=== PATIENT | female | born 1965 | race Caucasian/White ===

== ENCOUNTER 2020-04-17 05:01 | Emergency (ER) | payer BC ==
[~2020-04-17] VITALS: Ht 175.3 cm; Wt 95.4 kg
--- NOTE | 2020-04-17 05:26 | PHYS DOC ---
General Adult EDM: Chief Complaint: ABDOMINAL PAIN HPI: HPI: Patient is a 54 year old female who presents with complaint of mid abdominal pain that started at about 3:00 this morning. Patient states that she has had diarrhea for the last few days along with nausea but the abdominal pain did not start until this morning. She states that pain does not radiate. She states that pain is an 8 out of 10. She denies any fever, chest pain or shortness of breath. She states that pain is worsened with palpation. [] (ROSI WEATHERS Jr. DO) Review of Systems: Review of Systems: Constitutional: Denies fever or chills. [] Respiratory: Denies cough or shortness of breath. [] Cardiovascular: Denies chest pain or edema. [] GI: Complains of mid abdominal pain with nausea. Denies vomiting but does admit to diarrhea. [] Integument: Denies rash. [] Neurologic: Denies headache, focal weakness or sensory changes. [] A full 10 point review of systems has been reviewed and is otherwise negative. (ROSI WEATHERS Jr. DO) Heart Score: Risk Factors: Risk Factors: DM, Current or recent (<one month) smoker, HTN, HLP, family history of CAD, obesity. Risk Scores: Score 0 - 3: 2.5% MACE over next 6 weeks - Discharge Home Score 4 - 6: 20.3% MACE over next 6 weeks - Admit for Clinical Observation Score 7 - 10: 72.7% MACE over next 6 weeks - Early Invasive Strategies (ROSI WEATHERS Jr. DO) Current Medications: Current Medications Medications (Trade) Dose Ordered Sig/[facility] Start Time Stop Time Status Last Admin Dose Admin Fentanyl Citrate (Fentanyl 2ml Vial) 50 mcg PRN Q15MIN PRN 04/17/20 05:30 04/18/20 05:29 UNV Ondansetron HCl (Zofran) 4 mg 1X ONCE 04/17/20 05:30 04/17/20 05:31 UNV Sodium Chloride 1,000 ml @ 1,000 mls/hr Q1H 04/17/20 05:18 04/17/20 06:17 UNV (ROSI WEATHERS Jr., DO) Allergies: Allergies: Allergies Coded Allergies Type Severity Reaction Last Updated Verified No Known Drug Allergies 04/17/20 No (ROSI WEATHERS Jr. DO) Physical Exam: PE: Constitutional: Well developed, well nourished, no acute distress, non-toxic appearance. [] HENT: Normocephalic, atraumatic, bilateral external ears normal, oropharynx moist, no oral exudates, nose normal. [] Eyes: PERRLA, EOMI, conjunctiva normal, no discharge. [] Neck: Normal range of motion, no tenderness, supple. [] Cardiovascular: Regular rate and rhythm [] Lungs & Thorax: Bilateral breath sounds clear to auscultation [] Abdomen: Bowel sounds normal, soft, with mid abdominal tenderness, just above the umbilicus. [] Skin: Warm, dry, no erythema, no rash. [] Extremities: No tenderness, no cyanosis, no clubbing, ROM intact. [] Neurologic: Alert and oriented X 3, no focal deficits noted. [] (ROSI WEATHERS Jr. DO) EKG: EKG: [] (ROSI WEATHERS Jr., DO) Radiology/Procedures: Radiology/Procedures: [] (ROSI WEATHERS Jr., DO) Radiology/Procedures: [facility] [address] [place] [address] IMAGING REPORT Signed PATIENT: CARLOS EDUARDO PAK ACCOUNT: [id number] : 1965 LOCATION: ER AGE: 54 SEX: F EXAM STATUS: REG ER ORD. PHYSICIAN: ROSI WEATHERS Jr., DO REASON: abd pain PROCEDURE: CT ABD PELV W/ IV CONTRST ONLY EXAM: CT Abdomen and Pelvis with IV contrast CLINICAL HISTORY: Abdominal pain COMPARISON: none TECHNIQUE: Helical CT of the abdomen and pelvis was performed following the administration of IV contrast. Axial, coronal and sagittal reformatted images were generated. ---PQRS compliance statement - One or more of the following individualized dose reduction techniques were utilized for this study: 1. Automated exposure control 2. Adjustment of the mA and/or kV according to patient size 3. Use of iterative reconstruction technique--- FINDINGS: Lower chest: Linear and subpleural opacities left greater than right lower lobes likely scarring/atelectasis. Abdomen and pelvis: Liver and biliary system: No focal liver lesion. Liver is enlarged measuring 22.1 cm in length. Noncalcified gallstones are seen dependently within the gallbladder. No biliary duct dilatation. Spleen: Unremarkable Pancreas: Unremarkable Adrenal glands: Unremarkable Kidneys: Symmetric nephrograms. No focal renal lesion. No hydronephrosis. No hydroureter. Lymph nodes/retroperitoneum: No abdominal or pelvic lymphadenopathy. No abdominal or pelvic ascites. Vessels: Atherosclerotic calcifications of aorta are seen. Bowel/Peritoneal cavity: Moderate colonic stool content is seen. Appendix is not convincingly seen. No small or large bowel dilatation. A few colonic diverticula are seen. No evidence for acute diverticulitis. No abdominal or pelvic ascites. Abdominal wall: Unremarkable Bladder: Unremarkable Bones: Degenerative changes of the spine are seen. IMPRESSION: No bowel obstruction. Appendix is not seen although no significant right lower quadrant inflammatory changes are seen. Gallstones are seen within the gallbladder. No CT evidence for acute cholecystitis. Colonic diverticula are seen without evidence for acute diverticulitis. Electronically signed by: Steven Ellison MD (04/17/2020 6:50 AM) [id number] DICTATED and SIGNED BY: STEVEN ELLISON MD DATE: 04/17/20 0650 [facility] [address] [place] [address] IMAGING REPORT Signed PATIENT: CARLOS EDUARDO PAK ACCOUNT: [id number] : 1965 LOCATION: ER AGE: 54 SEX: F EXAM STATUS: REG ER ORD. PHYSICIAN: MIRI MCPHERSON DO REASON: epigastric abdominal pain, gallstones. PROCEDURE: ABDOMEN LTD Limited abdomen ultrasound HISTORY: Epigastric abdominal pain, gallstones. COMPARISON: CT abdomen April 17, 2020. FINDINGS: The imaged pancreas, upper abdominal IVC and upper abdominal aorta are normal. Normal liver echogenicity. No liver mass or nodularity documented. Elongation of the right hepatic lobe with a length of 18.5 cm, the inferior tip of the liver extending below the right renal lower pole, this could be observed with a tall body stature or could indicate hepatomegaly. No biliary ductal dilation the common bile duct diameter is 5 mm. Cholelithiasis, no inflammatory changes of the gallbladder. Right renal length 11.7 cm. No right renal mass, calculus or hydronephrosis documented. Spleen and left kidney were not evaluated. IMPRESSION: Cholelithiasis. No inflammatory changes of the gallbladder. No biliary ductal dilation. See above. Electronically signed by: Imelda Barclay MD (04/17/2020 8:04 AM) [id number] DICTATED and SIGNED BY: IMELDA BARCLAY MD DATE: 04/17/20 0804 (MIRI MCPHERSON DO) Course & Med Decision Making: Course & Med Decision Making Pertinent Labs and Imaging studies reviewed. (See chart for details) [] (ROSI WEATHERS Jr., DO) Course & Med Decision Making Patient is a 54-year-old female who was evaluated in ER due to abdominal pain, her CT scan of abdomen pelvis and ultrasound shows gallstone. There is no evidence of infection. The pain was under control. Patient will be discharged home, she will need to follow-up with a general surgeon for outpatient elective operation. Patient is amenable to plan of care. (MIRI MCPHERSON DO) Dragon Disclaimer: Dragon Disclaimer: This electronic medical record was generated, in whole or in part, using a voice recognition dictation system. (ROSI WEATHERS Jr., DO) Departure Departure Impression: Primary Impression: Abdominal pain Additional Impression: Cholelithiasis Disposition: HOME, SELF-CARE Condition: IMPROVED Referrals: NO PCP (PCP) GARIMA MOON MD please call this general surgeon for follow up this week. Patient Instructions: Cholelithiasis Scripts Hydrocodone/Apap 5-325 (NORCO 5-325 TABLET) 1 Each Tablet 1 TAB PO PRN Q6HRS PRN for PAIN, #15 TAB 0 Refills Prov: MIRI MCPHERSON DO 04/17/20 ROSI WEATHERS Jr. DO Apr 17, 2020 05:25 MIRI MCPHERSON DO Apr 17, 2020 08:15
[2020-04-17 05:27] LABS: BILIRUBIN,URINE NEGATIVE (NEG); CLARITY,URINE CLEAR; COLOR,URINE YELLOW; NITRITE,URINE NEGATIVE (NEG); PROTEIN,URINE NEGATIVE (NEG-TRACE); UROBILINOGEN,URINE 0.2 mg/dL (0.2 mg/dL)
[2020-04-17] MEDS ORDERED: IV NORMAL SALINE 1000ML BAG 1,000 ML IV SCH (05:30)
[2020-04-17] MEDS ORDERED: ONDANSETRON PF 4 MG/2 ML VIAL. IVP ONE (05:30)
[2020-04-17 05:37] LABS: BASO % 1 % (0-3); EOS % 1 % (0-3); HEMOGLOBIN 14.6 g/dL (12.0-15.5); LYMPH # 1.6 x10^3/uL (1.0-4.8); LYMPH % 25 % (24-48); MEAN CORPUSCULAR HEMOGLOBIN 31 pg (25-35); MEAN CORPUSCULAR HGB CONC 34 g/dL (31-37); MEAN CORPUSCULAR VOLUME 91 fL (79-100); MONO # 0.4 x10^3/uL (0.0-1.1); MONO % 6 % (0-9); NEUT # 4.5 x10^3/uL (1.8-7.7); NEUT % 68 % (31-73); PLATELET COUNT 214 x10^3/uL (140-400); RED BLOOD COUNT 4.72 x10^6/uL (3.50-5.40); RED CELL DISTRIBUTION WIDTH 13.7 % (11.5-14.5); WHITE BLOOD COUNT 6.6 x10^3/uL (4.0-11.0)
[2020-04-17] MEDS: fentaNYL PF VIAL 100 MCG/2 ML VIAL IV PRN ×2 (05:37→07:10)
[2020-04-17 05:42] LABS: SQUAMOUS EPITHELIAL CELL,UR MOD /LPF
[2020-04-17 05:43] LABS: BACTERIA,URINE FEW /HPF (0-FEW); RBC,URINE RARE /HPF (0-2)
[2020-04-17 05:45] LABS: CREATININE 1.2 mg/dL (0.6-1.0); POTASSIUM 3.7 mmol/L (3.5-5.1)
[2020-04-17 05:51] LABS: ALBUMIN 3.7 g/dL (3.4-5.0); ALBUMIN/GLOBULIN RATIO 1.1 (1.0-1.7); TOTAL BILIRUBIN 0.2 mg/dL (0.2-1.0); TOTAL PROTEIN 7.2 g/dL (6.4-8.2)
[2020-04-17] MEDS ORDERED: IOHEXOL 300 MG/ML 100ML VIAL. IV ONE (06:45)
[2020-04-17] MEDS ORDERED: CONTRAST GIVEN. MC PRN (06:45)
--- NOTE | 2020-04-17 06:53 | RAD ---
EXAM: CT Abdomen and Pelvis with IV contrast CLINICAL HISTORY: Abdominal pain COMPARISON: none TECHNIQUE: Helical CT of the abdomen and pelvis was performed following the administration of IV contrast. Axial, coronal and sagittal reformatted images were generated. ---PQRS compliance statement - One or more of the following individualized dose reduction techniques were utilized for this study: 1. Automated exposure control 2. Adjustment of the mA and/or kV according to patient size 3. Use of iterative reconstruction technique--- FINDINGS: Lower chest: Linear and subpleural opacities left greater than right lower lobes likely scarring/atelectasis. Abdomen and pelvis: Liver and biliary system: No focal liver lesion. Liver is enlarged measuring 22.1 cm in length. Noncalcified gallstones are seen dependently within the gallbladder. No biliary duct dilatation. Spleen: Unremarkable Pancreas: Unremarkable Adrenal glands: Unremarkable Kidneys: Symmetric nephrograms. No focal renal lesion. No hydronephrosis. No hydroureter. Lymph nodes/retroperitoneum: No abdominal or pelvic lymphadenopathy. No abdominal or pelvic ascites. Vessels: Atherosclerotic calcifications of aorta are seen. Bowel/Peritoneal cavity: Moderate colonic stool content is seen. Appendix is not convincingly seen. No small or large bowel dilatation. A few colonic diverticula are seen. No evidence for acute diverticulitis. No abdominal or pelvic ascites. Abdominal wall: Unremarkable Bladder: Unremarkable Bones: Degenerative changes of the spine are seen. IMPRESSION: No bowel obstruction. Appendix is not seen although no significant right lower quadrant inflammatory changes are seen. Gallstones are seen within the gallbladder. No CT evidence for acute cholecystitis. Colonic diverticula are seen without evidence for acute diverticulitis. Electronically signed by: Steven Maza MD (04/17/2020 6:50 AM) [id number]
[2020-04-17 07:27] VITALS: BP 154/79
--- NOTE | 2020-04-17 08:07 | RAD ---
Limited abdomen ultrasound HISTORY: Epigastric abdominal pain, gallstones. COMPARISON: CT abdomen April 17, 2020. FINDINGS: The imaged pancreas, upper abdominal IVC and upper abdominal aorta are normal. Normal liver echogenicity. No liver mass or nodularity documented. Elongation of the right hepatic lobe with a length of 18.5 cm, the inferior tip of the liver extending below the right renal lower pole, this could be observed with a tall body stature or could indicate hepatomegaly. No biliary ductal dilation the common bile duct diameter is 5 mm. Cholelithiasis, no inflammatory changes of the gallbladder. Right renal length 11.7 cm. No right renal mass, calculus or hydronephrosis documented. Spleen and left kidney were not evaluated. IMPRESSION: Cholelithiasis. No inflammatory changes of the gallbladder. No biliary ductal dilation. See above. Electronically signed by: Juan Barclay MD (04/17/2020 8:04 AM) [id number]
[2020-04-17] MEDS ORDERED: HYDR-3164 PO (08:30)
== END 2020-04-17 08:42 | disposition home or self-care (01) ==
LOC: ER 05:01
DX: K80.20 Calculus of gallbladder without cholecystitis without obstruction (principal); R19.7 Diarrhea, unspecified
CPT/HCPCS: 36415; 74177; 76705; 80053; 81001; 83690; 85025; 96361; 96374; 96375; 96376; 99285; J2405; J3010; J7030; Q9967

== ENCOUNTER 2020-04-23 00:45 | Inpatient (IN) | payer BC ==
[~2020-04-23] VITALS: Ht 175.3 cm; Wt 90.7 kg
[~2020-04-23 00:45] MED LIST: HYDR-3164 PO
[2020-04-23] MEDS ORDERED: MORPHINE SULFATE 4 MG/ML VIAL. IV ONE (01:30)
[2020-04-23] MEDS ORDERED: ONDANSETRON PF 4 MG/2 ML VIAL. IVP ONE (01:30)
[2020-04-23] MEDS ORDERED: IV NORMAL SALINE 1000ML BAG 1,000 ML IV ONE ×3 (01:30→09:15)
--- NOTE | 2020-04-23 01:33 | PHYS DOC ---
Past Medical History Past Medical History: Other Additional Past Medical Histor: GALL STONE Past Surgical History: Hysterectomy, Other Additional Past Surgical Histo: SX CARPAL TUNNEL REPAI RIGHT WRIST, BACK. SCAR REVISION ON FACE Smoking Status: Never Smoker Alcohol Use: None General Adult EDM: Chief Complaint: ABDOMINAL PAIN HPI: HPI: Patient is a 54 year old female presenting to the ED with a chief complaint of right upper quadrant tenderness. Patient states that she was seen in the ER 5 days ago and was diagnosed with gallstones. Patient states that at that time she was referred to her surgeon and has an appointment next week. Patient states that tonight the pain got so bad that she came into the ER. Patient states that she is also been vomiting and unable to hold any food down. Patient denies fever, chills, chest pain, shortness of breath. Review of Systems: Review of Systems: Constitutional: Denies fever or chills. [] Eyes: Denies change in visual acuity. [] HENT: Denies nasal congestion or sore throat. [] Respiratory: Denies cough or shortness of breath. [] Cardiovascular: Denies chest pain or edema. [] GI: Complains of right upper quadrant tenderness and nausea and vomiting [] : Denies dysuria. [] Musculoskeletal: Denies back pain or joint pain. [] Integument: Denies rash. [] Neurologic: Denies headache, focal weakness or sensory changes. [] Heart Score: Risk Factors: Risk Factors: DM, Current or recent (<one month) smoker, HTN, HLP, family history of CAD, obesity. Risk Scores: Score 0 - 3: 2.5% MACE over next 6 weeks - Discharge Home Score 4 - 6: 20.3% MACE over next 6 weeks - Admit for Clinical Observation Score 7 - 10: 72.7% MACE over next 6 weeks - Early Invasive Strategies Current Medications: Current Medications Medications (Trade) Dose Ordered Sig/Don Start Time Stop Time Status Last Admin Dose Admin Morphine Sulfate (Morphine Sulfate) 4 mg 1X ONCE 04/23/20 01:30 04/23/20 01:31 DC Ondansetron HCl (Zofran) 4 mg 1X ONCE 04/23/20 01:30 04/23/20 01:31 DC Sodium Chloride 1,000 ml @ 1,000 mls/hr 1X ONCE 04/23/20 01:30 04/23/20 02:29 Allergies: Allergies: Allergies Coded Allergies Type Severity Reaction Last Updated Verified No Known Drug Allergies 04/17/20 No Physical Exam: PE: Constitutional: Well developed, well nourished, no acute distress, non-toxic appearance. [] HENT: Normocephalic, atraumatic Eyes: EOMI Neck: Normal range of motion, Supple Cardiovascular: Heart rate regular rhythm Lungs & Thorax: Bilateral breath sounds clear to auscultation [] Abdomen: Right upper quadrant tenderness Extremities: No tenderness, ROM intact Neurologic: Alert and oriented X 3 Current Patient Data: Vital Signs: Vital Signs Date Time Temp Pulse Resp B/P (MAP) Pulse Ox O2 Delivery O2 Flow Rate FiO2 04/23/20 01:10 98.4 72 24 128/70 (89) 100 Room Air 98.4 EKG: EKG: [] Radiology/Procedures: Radiology/Procedures: [] Impression: CT ABD/PELVIS IMPRESSION: * Gallbladder is distended at time of examination with some heterogenous material within which could be from sludge and stones. There is also mild dilatation of the common bile duct. Would correlate with symptoms in the region and it may be helpful to obtain a follow-up ultrasound to further evaluate. * No evidence of bowel obstruction or appendicitis. Course & Med Decision Making: Course & Med Decision Making Pertinent Labs and Imaging studies reviewed. (See chart for details) Ordered labs, IV fluids, IV morphine, IV Zofran Labs are within normal limits. Patient wants to try ice chips she thinks that she can go home. Patient states that the pain is returned. I have ordered Dilaudid 1 mg IV. We will reevaluate the patient again. Patient needed another dose of Dilaudid 1 mg IV. IMPRESSION: * Gallbladder is distended at time of examination with some heterogenous material within which could be from sludge and stones. There is also mild dilatation of the common bile duct. Would correlate with symptoms in the region and it may be helpful to obtain a follow-up ultrasound to further evaluate. * No evidence of bowel obstruction or appendicitis. Patient still has abdominal pain ability to be admitted to the hospital for further evaluation and treatment. We will discuss with hospitalist service for admission. Discussed results and plan of care with patient. Bakari Disclaimer: Bakari Disclaimer: This electronic medical record was generated, in whole or in part, using a voice recognition dictation system. Departure Departure Impression: Primary Impression: Cholelithiasis Additional Impression: Intractable abdominal pain Disposition: ADMITTED INPATIENT Condition: GOOD Referrals: NO PCP (PCP) Justicifation of Admission Dx: Justifications for Admission: Justification of Admission Dx: Yes JANET RAMOS DO Apr 23, 2020 01:32
[2020-04-23 01:38] LABS: BASO # 0.1 x10^3/uL (0.0-0.2); BASO % 1 % (0-3); EOS % 0 % (0-3); HEMATOCRIT 39.3 % (36.0-47.0); HEMOGLOBIN 13.6 g/dL (12.0-15.5); LYMPH # 1.6 x10^3/uL (1.0-4.8); LYMPH % 18 % (24-48); MEAN CORPUSCULAR HEMOGLOBIN 32 pg (25-35); MEAN CORPUSCULAR HGB CONC 35 g/dL (31-37); MEAN CORPUSCULAR VOLUME 91 fL (79-100); MONO # 0.4 x10^3/uL (0.0-1.1); MONO % 5 % (0-9); NEUT # 6.9 x10^3/uL (1.8-7.7); NEUT % 77 % (31-73); PLATELET COUNT 210 x10^3/uL (140-400); RED BLOOD COUNT 4.32 x10^6/uL (3.50-5.40); RED CELL DISTRIBUTION WIDTH 13.8 % (11.5-14.5); WHITE BLOOD COUNT 8.9 x10^3/uL (4.0-11.0)
[2020-04-23 01:47] LABS: CALCIUM 8.9 mg/dL (8.5-10.1); CREATININE 1.3 mg/dL (0.6-1.0); GFR 42.8; POTASSIUM 3.9 mmol/L (3.5-5.1)
[2020-04-23 01:53] LABS: ALBUMIN 3.7 g/dL (3.4-5.0); ALBUMIN/GLOBULIN RATIO 1.2 (1.0-1.7); TOTAL BILIRUBIN 0.2 mg/dL (0.2-1.0); TOTAL PROTEIN 6.8 g/dL (6.4-8.2)
[2020-04-23] MEDS ORDERED: HYDROmorphone 2 MG/ML VIAL IV ONE ×2 (02:30→03:30)
[2020-04-23] MEDS ORDERED: CONTRAST GIVEN. MC PRN (03:00)
[2020-04-23] MEDS ORDERED: IOHEXOL 300 MG/ML 100ML VIAL. IV ONE (03:00)
--- NOTE | 2020-04-23 03:51 | RAD ---
INDICATION: Reason: RUQ pain / Spl. Instructions: OMNI 300 INJ 60 MLS / History: COMPARISON: April 17, 2020 TECHNIQUE: Axial CT images obtained through the abdomen and pelvis with contrast. One or more of the following individualized dose reduction techniques were utilized for this examination: 1. Automated exposure control; 2. Adjustment of the mA and/or kV according to patient size; 3. Use of iterative reconstruction technique. FINDINGS: Moderate calcific atherosclerosis without abdominal aortic aneurysm. Gallbladder is distended at time of exam with some heterogenous material within. Mild prominence of the bile ducts. No peripancreatic fluid collection. Spleen unremarkable. No hydronephrosis. Urinary bladder is partially distended. Colonic diverticulosis. Appendix does not appear inflamed. Postoperative changes to small bowel. Common bile duct measures approximately 8 mm. Degenerative changes of the spine. Multilevel central canal and neural foraminal stenosis. IMPRESSION: * Gallbladder is distended at time of examination with some heterogenous material within which could be from sludge and stones. There is also mild dilatation of the common bile duct. Would correlate with symptoms in the region and it may be helpful to obtain a follow-up ultrasound to further evaluate. * No evidence of bowel obstruction or appendicitis. Electronically signed by: Rahul Daniels MD (04/23/2020 3:48 AM) [id number]
[2020-04-23 06:12] VITALS: BP 139/65
--- NOTE | 2020-04-23 06:27 | NUR ---
Patient arrived to the unit at 0545 hours. Patient admission paperwork and head to toe assessment completed at this time. Patient currently reports pain at 3 out of a 10. Patient states pain mostly in Upper Left Quadrant of abdomen. Patient NPO at this time. Patient's bed placed in the lowest position and call placed within reach of patient. Will continue to monitor patient at this time.
--- NOTE | 2020-04-23 07:13 | RAD ---
INDICATION : Reason: RUQ pain / Spl. Instructions: / History: COMPARISON: CT from earlier same day TECHNIQUE: Multiple ultrasound images obtained through the abdomen in grayscale and color. FINDINGS: Liver: Mildly echogenic. Gallbladder: Gallstones are identified. Gallbladder wall is prominent in thickness with suspected pericholecystic edema. Wall measures approximately 4 mm. IVC: Partially distended at level of liver. Common Bile Duct: Dilated to about 8 mm. Pancreas: No gross abnormality identified in visualized portions of pancreas. Right Kidney: No hydronephrosis. IMPRESSION: * Multiple gallstones are identified. There is also some mild gallbladder wall thickening and pericholecystic edema. Would correlate with symptoms in the region since this can be seen with cholecystitis. Other possible causes of gallbladder wall thickening include reactive to adjacent hepatic disease or a systemic process such as hypoproteinemia. * Dilatation of the common bile duct. A distal obstruction is not excluded given this finding. * Liver appears mildly echogenic. Nonspecific but can be seen with fatty infiltration Electronically signed by: Rahul Daniels MD (04/23/2020 7:10 AM) [id number]
--- NOTE | 2020-04-23 08:26 | PDOC2 ---
RONI MUÑOZ CASHIER OR CHECKER STOCK CLERK 04/23/20 0826: CONSULT Date of Consult Date of Consult DATE: 04/23/20 TIME: 08:19 Reason for Consult Reason for Consult: cholecystitis Referring Physician Referring Physician: ER Identification/Chief Complaint Chief Complaint abdominal pain Source Source: Chart review, Patient History of Present Illness Reason for Visit: Reports intermittent abdominal pain off and on for a year. Significant pain 5 days ago, referral to surgery-returned with severe pain last--right upper quadrant, severe nausea. Mild aching pain in back. Unable to relate to any certain foods. Chronic issues with diarrhea, constipation. Past Medical History Past Medical History no pertinent hx Past Surgical History Past Surgical History: Hysterectomy, Other (sb resection, related to endometriosis ) Family History Family History: Diabetes Social History No ALCOHOL: none Drugs: None Lives: Alone Current Problem List Problem List Problems Medical Problems: (1) Cholelithiasis Status: Acute (2) Intractable abdominal pain Status: Acute Current Medications Current Medications Current Medications Sodium Chloride 1,000 ml @ 1,000 mls/hr 1X ONCE IV Last administered on 04/23/20at 01:35; Start 04/23/20 at 01:30; Stop 04/23/20 at 02:29; Status DC Morphine Sulfate (Morphine Sulfate) 4 mg 1X ONCE IV Last administered on 04/23/20at 01:34; Start 04/23/20 at 01:30; Stop 04/23/20 at 01:31; Status DC Ondansetron HCl (Zofran) 4 mg 1X ONCE IVP Last administered on 04/23/20at 01:34; Start 04/23/20 at 01:30; Stop 04/23/20 at 01:31; Status DC Hydromorphone HCl (Dilaudid) 1 mg 1X ONCE IV Last administered on 04/23/20at 02:22; Start 04/23/20 at 02:30; Stop 04/23/20 at 02:31; Status DC Sodium Chloride 1,000 ml @ 1,000 mls/hr 1X ONCE IV Last administered on 04/23/20at 03:10; Start 04/23/20 at 03:00; Stop 04/23/20 at 03:59; Status DC Iohexol (Omnipaque 300 Mg/ml) 60 ml 1X ONCE IV Last administered on 04/23/20at 02:56; Start 04/23/20 at 03:00; Stop 04/23/20 at 03:01; Status DC Info (CONTRAST GIVEN -- Rx MONITORING) 1 each PRN DAILY PRN MC SEE COMMENTS; Start 04/23/20 at 03:00; Stop 04/25/20 at 02:59 Hydromorphone HCl (Dilaudid) 1 mg 1X ONCE IV Last administered on 04/23/20at 03:30; Start 04/23/20 at 03:30; Stop 04/23/20 at 03:31; Status DC Piperacillin Sod/ Tazobactam Sod 3.375 gm/Sodium Chloride 50 ml @ 100 mls/hr Q6HRS IV ; Start 04/23/20 at 12:00 Active Scripts Active [place] 5-325 Tablet (Acetaminophen/Hydrocodone Bitart) 1 Each Tablet 1 Tab PO PRN Q6HRS PRN Allergies Allergies: Coded Allergies: No Known Drug Allergies (Unverified , 04/17/20) ROS General: No: Chills, Other (fevers ) PSYCHOLOGICAL ROS: No: Anxiety, Depression Eyes: No Blurry vision, No Double vision HEENT: No: Heacaches, Sore Throat Hematological and Lymphatic: No: Bleeding Problems, Blood Clots Respiratory: No: Cough, Shortness of breath Cardiovascular: No Chest Pain, No Palpitations Gastrointestinal: Yes Other (see hpi) Genitourinary: No Dysuria, No Hematuria Musculoskeletal: No Gait Disturbance, No Joint Stiffness Neurological: No Bowel/Bladder ControlChng, No Impaired Coord/balance Skin: No Pruritus, No Rash Physical Exam General: Alert, Oriented X3, Cooperative HEENT: Atraumatic, PERRLA Lungs: Clear to auscultation, Normal air movement Heart: Regular rate, Normal S1, Normal S2 Abdomen: Soft, Other (ND, mild TTP RUQ, vertical midline scar ) Extremities: No clubbing, No cyanosis Skin: No rashes, No breakdown Neuro: Normal gait, Normal speech Psych/Mental Status: Mental status NL, Mood NL MUSCULOSKELETAL: No deformity, No swelling Vitals VITALS Vital Signs Date Time Temp Pulse Resp B/P (MAP) Pulse Ox O2 Delivery O2 Flow Rate FiO2 04/23/20 06:55 Room Air 04/23/20 06:12 97.7 79 20 139/65 (89) 98 97.7 04/23/20 05:32 2.0 Labs Labs Laboratory Tests Test 04/23/20 01:25 White Blood Count 8.9 x10^3/uL (4.0-11.0) Red Blood Count 4.32 x10^6/uL (3.50-5.40) Hemoglobin 13.6 g/dL (12.0-15.5) Hematocrit 39.3 % (36.0-47.0) Mean Corpuscular Volume 91 fL (79-100) Mean Corpuscular Hemoglobin 32 pg (25-35) Mean Corpuscular Hemoglobin Concent 35 g/dL (31-37) Red Cell Distribution Width 13.8 % (11.5-14.5) Platelet Count 210 x10^3/uL (140-400) Neutrophils (%) (Auto) 77 % (31-73) Lymphocytes (%) (Auto) 18 % (24-48) Monocytes (%) (Auto) 5 % (0-9) Eosinophils (%) (Auto) 0 % (0-3) Basophils (%) (Auto) 1 % (0-3) Neutrophils # (Auto) 6.9 x10^3/uL (1.8-7.7) Lymphocytes # (Auto) 1.6 x10^3/uL (1.0-4.8) Monocytes # (Auto) 0.4 x10^3/uL (0.0-1.1) Eosinophils # (Auto) 0.0 x10^3/uL (0.0-0.7) Basophils # (Auto) 0.1 x10^3/uL (0.0-0.2) Sodium Level 140 mmol/L (136-145) Potassium Level 3.9 mmol/L (3.5-5.1) Chloride Level 104 mmol/L (98-107) Carbon Dioxide Level 27 mmol/L (21-32) Anion Gap 9 (6-14) Blood Urea Nitrogen 25 mg/dL (7-20) Creatinine 1.3 mg/dL (0.6-1.0) Estimated GFR (Cockcroft-Gault) 42.8 BUN/Creatinine Ratio 19 (6-20) Glucose Level 152 mg/dL (70-99) Calcium Level 8.9 mg/dL (8.5-10.1) Total Bilirubin 0.2 mg/dL (0.2-1.0) Aspartate Amino Transf (AST/SGOT) 15 U/L (15-37) Alanine Aminotransferase (ALT/SGPT) 27 U/L (14-59) Alkaline Phosphatase 85 U/L (46-116) Total Protein 6.8 g/dL (6.4-8.2) Albumin 3.7 g/dL (3.4-5.0) Albumin/Globulin Ratio 1.2 (1.0-1.7) Lipase 98 U/L (73-393) Laboratory Tests Test 04/23/20 01:25 White Blood Count 8.9 x10^3/uL (4.0-11.0) Red Blood Count 4.32 x10^6/uL (3.50-5.40) Hemoglobin 13.6 g/dL (12.0-15.5) Hematocrit 39.3 % (36.0-47.0) Mean Corpuscular Volume 91 fL (79-100) Mean Corpuscular Hemoglobin 32 pg (25-35) Mean Corpuscular Hemoglobin Concent 35 g/dL (31-37) Red Cell Distribution Width 13.8 % (11.5-14.5) Platelet Count 210 x10^3/uL (140-400) Neutrophils (%) (Auto) 77 % (31-73) Lymphocytes (%) (Auto) 18 % (24-48) Monocytes (%) (Auto) 5 % (0-9) Eosinophils (%) (Auto) 0 % (0-3) Basophils (%) (Auto) 1 % (0-3) Neutrophils # (Auto) 6.9 x10^3/uL (1.8-7.7) Lymphocytes # (Auto) 1.6 x10^3/uL (1.0-4.8) Monocytes # (Auto) 0.4 x10^3/uL (0.0-1.1) Eosinophils # (Auto) 0.0 x10^3/uL (0.0-0.7) Basophils # (Auto) 0.1 x10^3/uL (0.0-0.2) Sodium Level 140 mmol/L (136-145) Potassium Level 3.9 mmol/L (3.5-5.1) Chloride Level 104 mmol/L (98-107) Carbon Dioxide Level 27 mmol/L (21-32) Anion Gap 9 (6-14) Blood Urea Nitrogen 25 mg/dL (7-20) Creatinine 1.3 mg/dL (0.6-1.0) Estimated GFR (Cockcroft-Gault) 42.8 BUN/Creatinine Ratio 19 (6-20) Glucose Level 152 mg/dL (70-99) Calcium Level 8.9 mg/dL (8.5-10.1) Total Bilirubin 0.2 mg/dL (0.2-1.0) Aspartate Amino Transf (AST/SGOT) 15 U/L (15-37) Alanine Aminotransferase (ALT/SGPT) 27 U/L (14-59) Alkaline Phosphatase 85 U/L (46-116) Total Protein 6.8 g/dL (6.4-8.2) Albumin 3.7 g/dL (3.4-5.0) Albumin/Globulin Ratio 1.2 (1.0-1.7) Lipase 98 U/L (73-393) Assessment/Plan Assessment/Plan cholecystitis will keep NPO, will d/w Dr Espinoza in planning lap anabell continue abx VANESSA ESPINOZA MD 04/23/20 1230: CONSULT Assessment/Plan Assessment/Plan Pt seen and examined; reported to the hospital with RUQ abdominal pain has been recurrent. Evaluation consistent with cholecystitis. PMH/PSH/ROS/SH as above; exam: alert, oriented, no distress, lungs clear, heart RR and R, abdomen soft, tender with palpation in RUQ, ext neg for edema. A/P) Calculous cholecystitis; recommend lap anabell, Covid test results pending, will add to OR schedule tomorrow RONI MUÑOZ APRN Apr 23, 2020 08:26 VANESSA ESPINOZA MD Apr 23, 2020 12:30
--- NOTE | 2020-04-23 09:09 | PDOC1 ---
History and Physical Date of Admission Date of Admission DATE: 04/23/20 TIME: 09:05 Identification/Chief Complaint Chief Complaint abd pain Source Source: Chart review, Patient History of Present Illness History of Present Illness Ms. Lucio, is a 54 year old female presenting to the ED with a chief complaint of right upper quadrant tenderness. Patient states that she was seen in the ER 5 days ago and was diagnosed with gallstones. Patient states that at that time she was referred to her surgeon and has an appointment next week. Patient states that tonight the pain got so bad that she came into the ER. Patient s tates that she is also been vomiting and unable to hold any food down. Patient denies fever, chills, chest pain, shortness of breath. Past Medical History Cardiovascular: No pertinent hx Pulmonary: No pertinent hx GI: No pertinent hx Heme/Onc: No pertinent hx Hepatobiliary: No pertinent hx Psych: No pertinent hx Rheumatologic: No pertinent hx Past Surgical History Past Surgical History: Hysterectomy, Other (sb resection, related to end ometriosis ) Family History Family History: Diabetes Social History Smoke: No ALCOHOL: none Drugs: None Current Problem List Problem List Problems Medical Problems: (1) Cholelithiasis Status: Acute (2) Intractable abdominal pain Status: Acute Current Medications Current Medications Current Medications Sodium Chloride 1,000 ml @ 1,000 mls/hr 1X ONCE IV Last administered on 04/23/20at 01:35; Start 04/23/20 at 01:30; Stop 04/23/20 at 02:29; Status DC Morphine Sulfate (Morphine Sulfate) 4 mg 1X ONCE IV Last administered on 04/23/20at 01:34; Start 04/23/20 at 01:30; Stop 04/23/20 at 01:31; Status DC Ondansetron HCl (Zofran) 4 mg 1X ONCE IVP Last administered on 04/23/20at 01:34; Start 04/23/20 at 01:30; Stop 04/23/20 at 01:31; Status DC Hydromorphone HCl (Dilaudid) 1 mg 1X ONCE IV Last administered on 04/23/20at 02:22; Start 04/23/20 at 02:30; Stop 04/23/20 at 02:31; Status DC Sodium Chloride 1,000 ml @ 1,000 mls/hr 1X ONCE IV Last administered on 04/23/20at 03:10; Start 04/23/20 at 03:00; Stop 04/23/20 at 03:59; Status DC Iohexol (Omnipaque 300 Mg/ml) 60 ml 1X ONCE IV Last administered on 04/23/20at 02:56; Start 04/23/20 at 03:00; Stop 04/23/20 at 03:01; Status DC Info (CONTRAST GIVEN -- Rx MONITORING) 1 each PRN DAILY PRN MC SEE COMMENTS; Start 04/23/20 at 03:00; Stop 04/25/20 at 02:59 Hydromorphone HCl (Dilaudid) 1 mg 1X ONCE IV Last administered on 04/23/20at 03:30; Start 04/23/20 at 03:30; Stop 04/23/20 at 03:31; Status DC Piperacillin Sod/ Tazobactam Sod 3.375 gm/Sodium Chloride 50 ml @ 100 mls/hr Q6HRS IV ; Start 04/23/20 at 12:00 Active Scripts Active [place] 5-325 Tablet (Acetaminophen/Hydrocodone Bitart) 1 Each Tablet 1 Tab PO PRN Q6HRS PRN Allergies Allergies: Coded Allergies: No Known Drug Allergies (Unverified , 04/17/20) ROS General: No: Chills, Night Sweats, Fatigue, Malaise, Appetite, Other PSYCHOLOGICAL ROS: No: Anxiety, Behavioral Disorder, Concentration difficultie, Decreased libido, Depression, Disorientation, Hallucinations, Hostility, Irritablity, Memory difficulties, Mood Swings, Obsessive thoughts, Physical abuse, Sexual abuse, Sleep disturbances, Suicidal ideation, Other Eyes: No Blurry vision, No Decreased vision, No Double vision, No Dry eyes, No Excessive tearing, No Eye Pain, No Itchy Eyes, No Loss of vision, No Photophobia, No Scotomata, No Uses contacts, No Uses glasses, No Other HEENT: No: Heacaches, Visual Changes, Hearing change, Nasal congestion, Nasal discharge, Oral lesions, Sinus pain, Sore Throat, Epistaxis, Sneezing, Snoring, Tinnitus, Vertigo, Vocal changes, Other Respiratory: No: Cough, Hemoptysis, Orthopnea, Pleuritic Pain, Shortness of breath, SOB with excertion, Sputum Changes, Stridor, Tachypnea, Wheezing, Other Cardiovascular: No Chest Pain, No Palpitations, No Orthopnea, No Paroxysmal Noc. Dyspnea, No Edema, No Lt Headedness, No Other Gastrointestinal: Yes Nausea, Yes Abdominal Pain; No Vomiting, No Diarrhea, No Constipation, No Melena, No Hematochezia, No Other Genitourinary: No Dysuria, No Frequency, No Incontinence, No Hematuria, No Retention, No Discharge, No Urgency, No Pain, No Flank Pain, No Other, No , No , No , No , No , No , No Musculoskeletal: No Gait Disturbance, No Joint Pain, No Joint Stiffness, No Joint Swelling, No Muscle Pain, No Muscular Weakness, No Pain In:, No Swelling In:, No Other Neurological: No Behavorial Changes, No Bowel/Bladder ControlChng, No Confusion, No Dizziness, No Gait Disturbance, No Headaches, No Impaired Coord/balance, No Memory Loss, No Numbness/Tingling, No Seizures, No Speech Problems, No Tremors, No Visual Changes, No Weakness, No Other Skin: No Dry Skin, No Eczema, No Hair Changes, No Lumps, No Mole Changes, No Mottling, No Nail Changes, No Pruritus, No Rash, No Skin Lesion Changes, No Other, No Acne Physical Exam General: Alert, Oriented X3, Cooperative, mild distress HEENT: Atraumatic, PERRLA Lungs: Clear to auscultation Heart: S1S2, RRR, no gallops Abdomen: Normal bowel sounds, Soft Extremities: No clubbing, No edema, Normal pulses Skin: No rashes Neuro: Normal gait, Sensation intact, Cranial nerves 3-12 NL Psych/Mental Status: Mental status NL, Mood NL Vitals Vitals Vital Signs Date Time Temp Pulse Resp B/P (MAP) Pulse Ox O2 Delivery O2 Flow Rate FiO2 04/23/20 06:55 Room Air 04/23/20 06:12 97.7 79 20 139/65 (89) 98 97.7 04/23/20 05:32 2.0 Labs Labs Laboratory Tests Test 04/23/20 01:25 White Blood Count 8.9 x10^3/uL (4.0-11.0) Red Blood Count 4.32 x10^6/uL (3.50-5.40) Hemoglobin 13.6 g/dL (12.0-15.5) Hematocrit 39.3 % (36.0-47.0) Mean Corpuscular Volume 91 fL (79-100) Mean Corpuscular Hemoglobin 32 pg (25-35) Mean Corpuscular Hemoglobin Concent 35 g/dL (31-37) Red Cell Distribution Width 13.8 % (11.5-14.5) Platelet Count 210 x10^3/uL (140-400) Neutrophils (%) (Auto) 77 % (31-73) Lymphocytes (%) (Auto) 18 % (24-48) Monocytes (%) (Auto) 5 % (0-9) Eosinophils (%) (Auto) 0 % (0-3) Basophils (%) (Auto) 1 % (0-3) Neutrophils # (Auto) 6.9 x10^3/uL (1.8-7.7) Lymphocytes # (Auto) 1.6 x10^3/uL (1.0-4.8) Monocytes # (Auto) 0.4 x10^3/uL (0.0-1.1) Eosinophils # (Auto) 0.0 x10^3/uL (0.0-0.7) Basophils # (Auto) 0.1 x10^3/uL (0.0-0.2) Sodium Level 140 mmol/L (136-145) Potassium Level 3.9 mmol/L (3.5-5.1) Chloride Level 104 mmol/L (98-107) Carbon Dioxide Level 27 mmol/L (21-32) Anion Gap 9 (6-14) Blood Urea Nitrogen 25 mg/dL (7-20) Creatinine 1.3 mg/dL (0.6-1.0) Estimated GFR (Cockcroft-Gault) 42.8 BUN/Creatinine Ratio 19 (6-20) Glucose Level 152 mg/dL (70-99) Calcium Level 8.9 mg/dL (8.5-10.1) Total Bilirubin 0.2 mg/dL (0.2-1.0) Aspartate Amino Transf (AST/SGOT) 15 U/L (15-37) Alanine Aminotransferase (ALT/SGPT) 27 U/L (14-59) Alkaline Phosphatase 85 U/L (46-116) Total Protein 6.8 g/dL (6.4-8.2) Albumin 3.7 g/dL (3.4-5.0) Albumin/Globulin Ratio 1.2 (1.0-1.7) Lipase 98 U/L (73-393) Laboratory Tests Test 04/23/20 01:25 White Blood Count 8.9 x10^3/uL (4.0-11.0) Red Blood Count 4.32 x10^6/uL (3.50-5.40) Hemoglobin 13.6 g/dL (12.0-15.5) Hematocrit 39.3 % (36.0-47.0) Mean Corpuscular Volume 91 fL (79-100) Mean Corpuscular Hemoglobin 32 pg (25-35) Mean Corpuscular Hemoglobin Concent 35 g/dL (31-37) Red Cell Distribution Width 13.8 % (11.5-14.5) Platelet Count 210 x10^3/uL (140-400) Neutrophils (%) (Auto) 77 % (31-73) Lymphocytes (%) (Auto) 18 % (24-48) Monocytes (%) (Auto) 5 % (0-9) Eosinophils (%) (Auto) 0 % (0-3) Basophils (%) (Auto) 1 % (0-3) Neutrophils # (Auto) 6.9 x10^3/uL (1.8-7.7) Lymphocytes # (Auto) 1.6 x10^3/uL (1.0-4.8) Monocytes # (Auto) 0.4 x10^3/uL (0.0-1.1) Eosinophils # (Auto) 0.0 x10^3/uL (0.0-0.7) Basophils # (Auto) 0.1 x10^3/uL (0.0-0.2) Sodium Level 140 mmol/L (136-145) Potassium Level 3.9 mmol/L (3.5-5.1) Chloride Level 104 mmol/L (98-107) Carbon Dioxide Level 27 mmol/L (21-32) Anion Gap 9 (6-14) Blood Urea Nitrogen 25 mg/dL (7-20) Creatinine 1.3 mg/dL (0.6-1.0) Estimated GFR (Cockcroft-Gault) 42.8 BUN/Creatinine Ratio 19 (6-20) Glucose Level 152 mg/dL (70-99) Calcium Level 8.9 mg/dL (8.5-10.1) Total Bilirubin 0.2 mg/dL (0.2-1.0) Aspartate Amino Transf (AST/SGOT) 15 U/L (15-37) Alanine Aminotransferase (ALT/SGPT) 27 U/L (14-59) Alkaline Phosphatase 85 U/L (46-116) Total Protein 6.8 g/dL (6.4-8.2) Albumin 3.7 g/dL (3.4-5.0) Albumin/Globulin Ratio 1.2 (1.0-1.7) Lipase 98 U/L (73-393) VTE Prophylaxis Ordered VTE Prophylaxis Devices: No VTE Pharmacological Prophylaxi: No Assessment/Plan Assessment/Plan acute on recent RUQ abd pain acute anabell, surg consult overweight, BMI 29 Justicifation of Admission Dx: Justifications for Admission: Justification of Admission Dx: Yes Comments: acute abd pain, acute anabell, failure of outpatient conservative managment admit for surgical ERMELINDA PANG MD Apr 23, 2020 09:08
[2020-04-23] MEDS ORDERED: SALIVA STIMULANT AGENT 44ML SPRAY BOTTLE. PO PRN (09:15)
[2020-04-23] MEDS ORDERED: HYDROmorphone 2 MG/ML VIAL IVP PRN (09:15)
--- NOTE | 2020-04-23 09:19 | NUR ---
SW following. Discussed with RN, pt from home, gets around independent. RN advised possible surgery today or tomorrow (04/24/2020). SW will continue to follow.
[2020-04-23 11:00] VITALS: BP 116/74
[2020-04-23] MEDS: PIPERACILLIN/TAZOBACTAM 3.375 GM in IV NORMAL SALINE 50ML 50 ML IV SCH ×3 (11:15→23:30)
[2020-04-23 15:00] VITALS: BP 112/68
[2020-04-23 19:00] VITALS: BP 128/67
[2020-04-23 23:00] VITALS: BP 122/65
[2020-04-24 03:00] VITALS: BP 107/60
[2020-04-24] MEDS: PIPERACILLIN/TAZOBACTAM 3.375 GM in IV NORMAL SALINE 50ML 50 ML IV SCH ×3 (05:46→17:39)
[2020-04-24 07:00] VITALS: BP 129/62
[2020-04-24] MEDS ORDERED: IV RINGERS,LACTATED 1000ML 1,000 ML IV SCH (07:00)
[2020-04-24] MEDS ORDERED: fentaNYL PF VIAL 100 MCG/2 ML VIAL IV PRN ×2 (07:00)
[2020-04-24] MEDS ORDERED: LIDOCAINE 1% PF 2 ML VIAL. ID PRN (07:00)
[2020-04-24] MEDS ORDERED: HYDROmorphone 2 MG/ML VIAL IV PRN (07:00)
[2020-04-24] MEDS ORDERED: MORPHINE SULFATE 2 MG/ML VIAL. IV PRN (07:00)
[2020-04-24] MEDS ORDERED: PROCHLORPERAZINE 10 MG/2 ML VIAL. IV PRN (07:00)
[2020-04-24] MEDS ORDERED: ONDANSETRON PF 4 MG/2 ML VIAL. IV PRN (07:00)
[2020-04-24] MEDS ORDERED: PROPOFOL 10 MG/ML (20ML) VIAL. IV ONE (07:04)
[2020-04-24] MEDS ORDERED: DEXAMETHASONE SOD PHOS 4 MG/ML VIAL ONE (07:04)
[2020-04-24] MEDS ORDERED: ONDANSETRON PF 4 MG/2 ML VIAL. ONE (07:04)
[2020-04-24] MEDS ORDERED: LIDOCAINE 2% PF 5 ML VIAL. ONE (07:04)
[2020-04-24] MEDS ORDERED: ROCURONIUM 50 MG/5 ML VIAL. ONE (07:05)
[2020-04-24] MEDS ORDERED: SUCCINYLCHOLINE 200 MG/10 ML VIAL. ONE (07:05)
--- NOTE | 2020-04-24 09:18 | NUR ---
SW following. Discussed with RN, pt having lap anabell today. SW will continue to follow.
[2020-04-24 11:00] VITALS: BP 119/66
--- NOTE | 2020-04-24 13:27 | PDOC ---
PROGRESS NOTES Chief Complaint Chief Complaint acute abd pain, acute anabell, failure of outpatient conservative managment admit for surgical eval Vitals Vitals Vital Signs Date Time Temp Pulse Resp B/P (MAP) Pulse Ox O2 Delivery O2 Flow Rate FiO2 04/24/20 11:00 98.3 76 18 119/66 (83) 95 Room Air 98.3 04/23/20 10:02 2.0 Physical Exam General: Alert, Oriented X3, Cooperative, mild distress Heart: Regular rate, Normal S1, Normal S2 Abdomen: Normal bowel sounds, Soft Extremities: No clubbing, No edema, Normal pulses Skin: No rashes Assessment and Plan Assessmemt and Plan Problems Medical Problems: (1) Cholelithiasis Status: Acute (2) Intractable abdominal pain Status: Acute Comment Review of Relevant I have reviewed the following items grady (where applicable) has been applied. Labs Laboratory Tests Test 04/23/20 01:25 04/23/20 04:28 White Blood Count 8.9 x10^3/uL (4.0-11.0) Red Blood Count 4.32 x10^6/uL (3.50-5.40) Hemoglobin 13.6 g/dL (12.0-15.5) Hematocrit 39.3 % (36.0-47.0) Mean Corpuscular Volume 91 fL (79-100) Mean Corpuscular Hemoglobin 32 pg (25-35) Mean Corpuscular Hemoglobin Concent 35 g/dL (31-37) Red Cell Distribution Width 13.8 % (11.5-14.5) Platelet Count 210 x10^3/uL (140-400) Neutrophils (%) (Auto) 77 % (31-73) Lymphocytes (%) (Auto) 18 % (24-48) Monocytes (%) (Auto) 5 % (0-9) Eosinophils (%) (Auto) 0 % (0-3) Basophils (%) (Auto) 1 % (0-3) Neutrophils # (Auto) 6.9 x10^3/uL (1.8-7.7) Lymphocytes # (Auto) 1.6 x10^3/uL (1.0-4.8) Monocytes # (Auto) 0.4 x10^3/uL (0.0-1.1) Eosinophils # (Auto) 0.0 x10^3/uL (0.0-0.7) Basophils # (Auto) 0.1 x10^3/uL (0.0-0.2) Sodium Level 140 mmol/L (136-145) Potassium Level 3.9 mmol/L (3.5-5.1) Chloride Level 104 mmol/L (98-107) Carbon Dioxide Level 27 mmol/L (21-32) Anion Gap 9 (6-14) Blood Urea Nitrogen 25 mg/dL (7-20) Creatinine 1.3 mg/dL (0.6-1.0) Estimated GFR (Cockcroft-Gault) 42.8 BUN/Creatinine Ratio 19 (6-20) Glucose Level 152 mg/dL (70-99) Calcium Level 8.9 mg/dL (8.5-10.1) Total Bilirubin 0.2 mg/dL (0.2-1.0) Aspartate Amino Transf (AST/SGOT) 15 U/L (15-37) Alanine Aminotransferase (ALT/SGPT) 27 U/L (14-59) Alkaline Phosphatase 85 U/L (46-116) Total Protein 6.8 g/dL (6.4-8.2) Albumin 3.7 g/dL (3.4-5.0) Albumin/Globulin Ratio 1.2 (1.0-1.7) Lipase 98 U/L (73-393) Coronavirus (COVID-19)(PCR) Negative (NEGATIVE) Medications Current Medications Sodium Chloride 1,000 ml @ 1,000 mls/hr 1X ONCE IV Last administered on 04/23/20at 01:35; Start 04/23/20 at 01:30; Stop 04/23/20 at 02:29; Status DC Morphine Sulfate (Morphine Sulfate) 4 mg 1X ONCE IV Last administered on 04/23/20 01:34; Start 04/23/20 at 01:30; Stop 04/23/20 at 01:31; Status DC Ondansetron HCl (Zofran) 4 mg 1X ONCE IVP Last administered on 04/23/20at 01:34; Start 04/23/20 at 01:30; Stop 04/23/20 at 01:31; Status DC Hydromorphone HCl (Dilaudid) 1 mg 1X ONCE IV Last administered on 04/23/20at 02:22; Start 04/23/20 at 02:30; Stop 04/23/20 at 02:31; Status DC Sodium Chloride 1,000 ml @ 1,000 mls/hr 1X ONCE IV Last administered on 04/23/20at 03:10; Start 04/23/20 at 03:00; Stop 04/23/20 at 03:59; Status DC Iohexol (Omnipaque 300 Mg/ml) 60 ml 1X ONCE IV Last administered on 04/23/20at 02:56; Start 04/23/20 at 03:00; Stop 04/23/20 at 03:01; Status DC Info (CONTRAST GIVEN -- Rx MONITORING) 1 each PRN DAILY PRN MC SEE COMMENTS; Start 04/23/20 at 03:00; Stop 04/25/20 at 02:59 Hydromorphone HCl (Dilaudid) 1 mg 1X ONCE IV Last administered on 04/23/20at 03:30; Start 04/23/20 at 03:30; Stop 04/23/20 at 03:31; Status DC Piperacillin Sod/ Tazobactam Sod 3.375 gm/Sodium Chloride 50 ml @ 100 mls/hr Q6HRS IV Last administered on 04/24/20at 11:47; Start 04/23/20 at 12:00 Saliva Substitute (Biotene Moisturizing Mouth) 2 spray PRN Q15MIN PRN PO DRY MOUTH; Start 04/23/20 at 09:15 Sodium Chloride 1,000 ml @ 125 mls/hr 1X ONCE IV Last administered on 0at 09:27; Start 04/23/20 at 09:15; Stop 04/23/20 at 17:14; Status DC Hydromorphone HCl (Dilaudid) 1 mg PRN Q4HRS PRN IVP PAIN Last administered on 04/23/20at 09:27; Start 04/23/20 at 09:15 Ondansetron HCl (Zofran) 4 mg PRN Q6HRS PRN IV NAUSEA/VOMITING; Start 04/24/20 at 07:00; Stop 04/25/20 at 06:59 Fentanyl Citrate (Fentanyl 2ml Vial) 25 mcg PRN Q5MIN PRN IV MILD PAIN 1-3; Start 04/24/20 at 07:00; Stop 04/25/20 at 06:59 Fentanyl Citrate (Fentanyl 2ml Vial) 50 mcg PRN Q5MIN PRN IV MODERATE TO SEVERE PAIN; Start 04/24/20 at 07:00; Stop 04/25/20 at 06:59 Morphine Sulfate (Morphine Sulfate) 1 mg PRN Q10MIN PRN IV SEVERE PAIN 7-10; Start 04/24/20 at 07:00; Stop 04/25/20 at 06:59 Ringer's Solution 1,000 ml @ 30 mls/hr Q24H IV ; Start 04/24/20 at 07:00; Stop 04/24/20 at 18:59 Lidocaine HCl (Xylocaine-Mpf 1% 2ml Vial) 2 ml PRN 1X PRN ID PRIOR TO IV START; Start 04/24/20 at 07:00; Stop 04/25/20 at 06:59 Hydromorphone HCl (Dilaudid) 0.5 mg PRN Q10MIN PRN IV SEV PAIN, Second choice; Start 04/24/20 at 07:00; Stop 04/25/20 at 06:59 Prochlorperazine Edisylate (Compazine) 5 mg PACU PRN PRN IV NAUSEA, MRX1; Start 04/24/20 at 07:00; Stop 04/25/20 at 06:59 Propofol (Diprivan) 200 mg STK-MED ONCE IV ; Start 04/24/20 at 07:04; Stop 04/24/20 at 07:05; Status DC Lidocaine HCl (Lidocaine Pf 2% Vial) 5 ml STK-MED ONCE .ROUTE ; Start 04/24/20 at 07:04; Stop 04/24/20 at 07:05; Status DC Ondansetron HCl (Zofran) 4 mg STK-MED ONCE .ROUTE ; Start 04/24/20 at 07:04; Stop 04/24/20 at 07:05; Status DC Dexamethasone Sodium Phosphate (Decadron) 4 mg STK-MED ONCE .ROUTE ; Start 04/24/20 at 07:04; Stop 04/24/20 at 07:05; Status DC Succinylcholine Chloride (Anectine) 200 mg STK-MED ONCE .ROUTE ; Start 04/24/20 at 07:05; Stop 04/24/20 at 07:05; Status DC Rocuronium [place] (Zemuron) 50 mg STK-MED ONCE .ROUTE ; Start 04/24/20 at 07:05; Stop 04/24/20 at 07:05; Status DC Active Scripts Active [place] 5-325 Tablet (Acetaminophen/Hydrocodone Bitart) 1 Each Tablet 1 Tab PO PRN Q6HRS PRN Vitals/I & O Vital Sign - Last 24 Hours 04/23/20 04/23/20 04/23/20 04/23/20 15:00 19:00 20:00 23:00 Temp 97.9 98.4 98.3 97.9 98.4 98.3 Pulse 62 76 65 Resp 18 18 18 B/P (MAP) 112/68 (83) 128/67 (87) 122/65 (84) Pulse Ox 96 97 95 O2 Delivery Room Air Room Air Room Air Room Air 04/24/20 04/24/20 04/24/20 04/24/20 03:00 07:00 08:00 11:00 Temp 98.2 98.0 98.3 98.2 98.0 98.3 Pulse 77 76 76 Resp 18 18 18 B/P (MAP) 107/60 (76) 129/62 (84) 119/66 (83) Pulse Ox 92 93 95 O2 Delivery Room Air Room Air Room Air Room Air Intake and Output 04/23/20 04/23/20 04/24/20 15:00 23:00 07:00 Intake Total 0 ml 560 ml 3250 ml Balance 0 ml 560 ml 3250 ml [email or web address] PANG MD Apr 24, 2020 13:27
[2020-04-24 15:00] VITALS: BP 116/63
--- NOTE | 2020-04-24 17:03 | PDOC ---
PROGRESS NOTES Subjective Subjective pt states pain improved; I was notified that the OR is very full and not likely to be able to get to surgery today; they were able to secure a first case time tomorrow morning Objective Objective Vital Signs Date Time Temp Pulse Resp B/P (MAP) Pulse Ox O2 Delivery O2 Flow Rate FiO2 04/24/20 15:00 98.2 63 18 116/63 (80) 99 Room Air 98.2 04/23/20 10:02 2.0 Intake and Output 04/24/20 07:00 Intake Total 3810 ml Balance 3810 ml Intake Oral 660 ml IV Total 3150 ml # Voids 4 Physical Exam Abdomen: Soft, No tenderness Heart: Regular rate, Normal S1 General: Alert, Oriented X3, Cooperative HEENT: Atraumatic Neuro: Normal speech Assessment Assessment Problems Medical Problems: (1) Cholelithiasis Status: Acute (2) Intractable abdominal pain Status: Acute Plan Plan of Care Clears tonight, To OR tomorrow Comment Review of Relevant I have reviewed the following items grady (where applicable) has been applied. Labs Laboratory Tests Test 04/23/20 01:25 04/23/20 04:28 White Blood Count 8.9 x10^3/uL (4.0-11.0) Red Blood Count 4.32 x10^6/uL (3.50-5.40) Hemoglobin 13.6 g/dL (12.0-15.5) Hematocrit 39.3 % (36.0-47.0) Mean Corpuscular Volume 91 fL (79-100) Mean Corpuscular Hemoglobin 32 pg (25-35) Mean Corpuscular Hemoglobin Concent 35 g/dL (31-37) Red Cell Distribution Width 13.8 % (11.5-14.5) Platelet Count 210 x10^3/uL (140-400) Neutrophils (%) (Auto) 77 % (31-73) Lymphocytes (%) (Auto) 18 % (24-48) Monocytes (%) (Auto) 5 % (0-9) Eosinophils (%) (Auto) 0 % (0-3) Basophils (%) (Auto) 1 % (0-3) Neutrophils # (Auto) 6.9 x10^3/uL (1.8-7.7) Lymphocytes # (Auto) 1.6 x10^3/uL (1.0-4.8) Monocytes # (Auto) 0.4 x10^3/uL (0.0-1.1) Eosinophils # (Auto) 0.0 x10^3/uL (0.0-0.7) Basophils # (Auto) 0.1 x10^3/uL (0.0-0.2) Sodium Level 140 mmol/L (136-145) Potassium Level 3.9 mmol/L (3.5-5.1) Chloride Level 104 mmol/L (98-107) Carbon Dioxide Level 27 mmol/L (21-32) Anion Gap 9 (6-14) Blood Urea Nitrogen 25 mg/dL (7-20) Creatinine 1.3 mg/dL (0.6-1.0) Estimated GFR (Cockcroft-Gault) 42.8 BUN/Creatinine Ratio 19 (6-20) Glucose Level 152 mg/dL (70-99) Calcium Level 8.9 mg/dL (8.5-10.1) Total Bilirubin 0.2 mg/dL (0.2-1.0) Aspartate Amino Transf (AST/SGOT) 15 U/L (15-37) Alanine Aminotransferase (ALT/SGPT) 27 U/L (14-59) Alkaline Phosphatase 85 U/L (46-116) Total Protein 6.8 g/dL (6.4-8.2) Albumin 3.7 g/dL (3.4-5.0) Albumin/Globulin Ratio 1.2 (1.0-1.7) Lipase 98 U/L (73-393) Coronavirus (COVID-19)(PCR) Negative (NEGATIVE) Medications Current Medications Sodium Chloride 1,000 ml @ 1,000 mls/hr 1X ONCE IV Last administered on 04/23/20at 01:35; Start 04/23/20 at 01:30; Stop 04/23/20 at 02:29; Status DC Morphine Sulfate (Morphine Sulfate) 4 mg 1X ONCE IV Last administered on 04/23/20at 01:34; Start 04/23/20 at 01:30; Stop 04/23/20 at 01:31; Status DC Ondansetron HCl (Zofran) 4 mg 1X ONCE IVP Last administered on 04/23/20at 01:34; Start 04/23/20 at 01:30; Stop 04/23/20 at 01:31; Status DC Hydromorphone HCl (Dilaudid) 1 mg 1X ONCE IV Last administered on 04/23/20at 02:22; Start 04/23/20 at 02:30; Stop 04/23/20 at 02:31; Status DC Sodium Chloride 1,000 ml @ 1,000 mls/hr 1X ONCE IV Last administered on 04/23/20at 03:10; Start 04/23/20 at 03:00; Stop 04/23/20 at 03:59; Status DC Iohexol (Omnipaque 300 Mg/ml) 60 ml 1X ONCE IV Last administered on 04/23/20at 02:56; Start 04/23/20 at 03:00; Stop 04/23/20 at 03:01; Status DC Info (CONTRAST GIVEN -- Rx MONITORING) 1 each PRN DAILY PRN MC SEE COMMENTS; Start 04/23/20 at 03:00; Stop 04/25/20 at 02:59 Hydromorphone HCl (Dilaudid) 1 mg 1X ONCE IV Last administered on 04/23/20at 03:30; Start 04/23/20 at 03:30; Stop 04/23/20 at 03:31; Status DC Piperacillin Sod/ Tazobactam Sod 3.375 gm/Sodium Chloride 50 ml @ 100 mls/hr Q6HRS IV Last administered on 04/24/20at 11:47; Start 04/23/20 at 12:00 Saliva Substitute (Biotene Moisturizing Mouth) 2 spray PRN Q15MIN PRN PO DRY MOUTH; Start 04/23/20 at 09:15 Sodium Chloride 1,000 ml @ 125 mls/hr 1X ONCE IV Last administered on 04/23/20at 09:27; Start 04/23/20 at 09:15; Stop 04/23/20 at 17:14; Status DC Hydromorphone HCl (Dilaudid) 1 mg PRN Q4HRS PRN IVP PAIN Last administered on 04/23/20at 09:27; Start 04/23/20 at 09:15 Ondansetron HCl (Zofran) 4 mg PRN Q6HRS PRN IV NAUSEA/VOMITING; Start 04/24/20 at 07:00; Stop 04/25/20 at 06:59 Fentanyl Citrate (Fentanyl 2ml Vial) 25 mcg PRN Q5MIN PRN IV MILD PAIN 1-3; Start 04/24/20 at 07:00; Stop 04/25/20 at 06:59 Fentanyl Citrate (Fentanyl 2ml Vial) 50 mcg PRN Q5MIN PRN IV MODERATE TO SEVERE PAIN; Start 04/24/20 at 07:00; Stop 04/25/20 at 06:59 Morphine Sulfate (Morphine Sulfate) 1 mg PRN Q10MIN PRN IV SEVERE PAIN 7-10; Start 04/24/20 at 07:00; Stop 04/25/20 at 06:59 Ringer's Solution 1,000 ml @ 30 mls/hr Q24H IV ; Start 04/24/20 at 07:00; Stop 04/24/20 at 18:59 Lidocaine HCl (Xylocaine-Mpf 1% 2ml Vial) 2 ml PRN 1X PRN ID PRIOR TO IV START; Start 04/24/20 at 07:00; Stop 04/25/20 at 06:59 Hydromorphone HCl (Dilaudid) 0.5 mg PRN Q10MIN PRN IV SEV PAIN, Second choice; Start 04/24/20 at 07:00; Stop 04/25/20 at 06:59 Prochlorperazine Edisylate (Compazine) 5 mg PACU PRN PRN IV NAUSEA, MRX1; Start 04/24/20 at 07:00; Stop 04/25/20 at 06:59 Propofol (Diprivan) 200 mg STK-MED ONCE IV ; Start 04/24/20 at 07:04; Stop 04/24/20 at 07:05; Status DC Lidocaine HCl (Lidocaine Pf 2% Vial) 5 ml STK-MED ONCE .ROUTE ; Start 04/24/20 at 07:04; Stop 04/24/20 at 07:05; Status DC Ondansetron HCl (Zofran) 4 mg STK-MED ONCE .ROUTE ; Start 04/24/20 at 07:04; Stop 04/24/20 at 07:05; Status DC Dexamethasone Sodium Phosphate (Decadron) 4 mg STK-MED ONCE .ROUTE ; Start 04/24/20 at 07:04; Stop 04/24/20 at 07:05; Status DC Succinylcholine Chloride (Anectine) 200 mg STK-MED ONCE .ROUTE ; Start 04/24/20 at 07:05; Stop 04/24/20 at 07:05; Status DC Rocuronium De Beque (Zemuron) 50 mg STK-MED ONCE .ROUTE ; Start 04/24/20 at 07:05; Stop 04/24/20 at 07:05; Status DC Active Scripts Active [place] 5-325 Tablet (Acetaminophen/Hydrocodone Bitart) 1 Each Tablet 1 Tab PO PRN Q6HRS PRN Vitals/I & O Vital Sign - Last 24 Hours 04/23/20 04/23/20 04/23/20 04/24/20 19:00 20:00 23:00 03:00 Temp 98.4 98.3 98.2 98.4 98.3 98.2 Pulse 76 65 77 Resp 18 18 18 B/P (MAP) 128/67 (87) 122/65 (84) 107/60 (76) Pulse Ox 97 95 92 O2 Delivery Room Air Room Air Room Air Room Air 04/24/20 04/24/20 04/24/20 04/24/20 07:00 08:00 11:00 15:00 Temp 98.0 98.3 98.2 98.0 98.3 98.2 Pulse 76 76 63 Resp 18 18 18 B/P (MAP) 129/62 (84) 119/66 (83) 116/63 (80) Pulse Ox 93 95 99 O2 Delivery Room Air Room Air Room Air Room Air Intake and Output 04/23/20 04/23/20 04/24/20 15:00 23:00 07:00 Intake Total 0 ml 560 ml 3250 ml Balance 0 ml 560 ml 3250 ml VANESSA GARIBAY MD Apr 24, 2020 17:03
[2020-04-24 19:00] VITALS: BP 135/76
[2020-04-24 23:00] VITALS: BP 130/63
[2020-04-25] VITALS (9 sets, daily range): BP systolic 111–129; BP diastolic 57–72
[2020-04-25] MEDS: PIPERACILLIN/TAZOBACTAM 3.375 GM in IV NORMAL SALINE 50ML 50 ML IV SCH ×3 (00:08→11:50)
[2020-04-25] MEDS ORDERED: IOHEXOL 300 MG/ML 50 ML VIAL. ONE (07:12)
[2020-04-25] MEDS ORDERED: SURGICEL HEMOSTAT 4X8 EACH. ONE (07:12)
[2020-04-25] MEDS ORDERED: BUPIVACAINE MPF 0.5% 30 ML VIAL. ONE (07:13)
[2020-04-25] MEDS ORDERED: fentaNYL PF VIAL 250 MCG/5 ML VIAL ONE (07:40)
[2020-04-25] MEDS ORDERED: ROCURONIUM 50 MG/5 ML VIAL. ONE (07:40)
[2020-04-25] MEDS ORDERED: ONDANSETRON PF 4 MG/2 ML VIAL. IV PRN (08:00)
[2020-04-25] MEDS ORDERED: LIDOCAINE 1% PF 2 ML VIAL. ID PRN (08:00)
[2020-04-25] MEDS ORDERED: fentaNYL PF VIAL 100 MCG/2 ML VIAL IV PRN ×2 (08:00)
[2020-04-25] MEDS ORDERED: MORPHINE SULFATE 2 MG/ML VIAL. IV PRN (08:00)
[2020-04-25] MEDS ORDERED: PROCHLORPERAZINE 10 MG/2 ML VIAL. IV PRN (08:00)
[2020-04-25] MEDS ORDERED: IV RINGERS,LACTATED 1000ML 1,000 ML IV SCH (08:00)
[2020-04-25] MEDS ORDERED: HYDROmorphone 2 MG/ML VIAL IV PRN (08:00)
--- NOTE | 2020-04-25 08:27 | NUR ---
SW following. Discussed with RN, pt having lap anabell today as OR was full yesterday. SW will continue to follow.
[2020-04-25] MEDS ORDERED: ONDANSETRON PF 4 MG/2 ML VIAL. ONE (09:05)
[2020-04-25] MEDS ORDERED: DEXAMETHASONE SOD PHOS 4 MG/ML VIAL ONE (09:05)
[2020-04-25] MEDS ORDERED: KETOROLAC 30 MG/ML VIAL. ONE (09:05)
[2020-04-25] MEDS ORDERED: LIDOCAINE 2% PF 5 ML VIAL. ONE (09:05)
[2020-04-25] MEDS ORDERED: PROPOFOL 10 MG/ML (20ML) VIAL. IV ONE (09:05)
[2020-04-25] MEDS ORDERED: SEVOFLURANE 61 TO 120 MINUTES. IH ONE (09:05)
[2020-04-25] MEDS ORDERED: GLYCOPYRROLATE 1 MG/5 ML VIAL. ONE (09:08)
[2020-04-25] MEDS ORDERED: NEOSTIGMINE METHYLSULFATE 5 MG/5 ML SYRINGE. ONE (09:08)
--- NOTE | 2020-04-25 09:14 | RAD ---
Interoperative Cholangiogram: Technique: Contrast is introduced into the cystic duct during the performance of a laparoscopic cholecystectomy and spot views were obtained on a portable C-arm for an intraoperative cholangiogram. Total Fluoro Time: 30s. Findings: The majority of the biliary tree is visualized and appears normal. No filling defects are seen. Contrast is seen in the duodenum. Impression: No evidence of a retained stone. Electronically signed by: Pantera Chou III, MD (04/25/2020 9:11 AM) [id number]
--- NOTE | 2020-04-25 09:29 | PDOC4 ---
Operative Note Operative Note Operative Note: Preoperative Diagnosis: Calculus cholecystitis Postoperative Diagnosis: Same Procedure: Laparoscopic cholecystectomy with intraoperative cholangiogram Surgeons: Alexis Anesthesia: GenTran Estimated Blood Loss: 10 mL Specimen: Gallbladder to pathology Drains: None Complications: None Indications: The patient is a 54-year-old female who was admitted with upper abdominal pain. Her evaluation is consistent with calculus cholecystitis. Surgical treatment was offered by means of a laparoscopic cholecystectomy. The risks of surgery were discussed which include bleeding, infection, bile duct injury, bile leak, pain, the potential for additional surgeries or procedures. The patient understands and would like to proceed. Description: The patient was taken to the operating room and laid supine on the operating table. General anesthesia was performed. The abdomen was prepped with ChloraPrep and draped in a standard surgical fashion. A small supraumbilical incision was made with a scalpel. The Veress needle was then inserted and a pneumoperitoneum was then created. A 5 mm trocar was then inserted and the laparoscope was introduced. In the upper midabdomen a 5 mm tro car was inserted and in the right upper quadrant two 2.3 mm mini lap graspers were inserted. The gallbladder was retracted cephalad. The cystic duct was dissected free from surrounding tissues. One clip was placed on the duct near the gallbladder junction. An opening was made in the duct and a cholangiocatheter placed within and secured with a clip. Using contrast dye and fluoroscopy an intraoperative cholangiogram was performed that appeared unremarkable. The clip and catheter were then withdrawn. Three clips were placed on the cystic duct and it was divided. The cystic artery was then identified, dissected free, doubly clipped and divided as well. The gallbladder was then mobilized away from the liver with cautery. The umbilical 5 millimeter trocar was exchanged for an 11 millimeter trocar. The gallbladder was then placed in an endoscopic bag and extracted at the umbilical trocar site. The fascia there was closed with an 0 Vicryl suture. All blood and irrigation fluid was suctioned and hemostasis was good. The remaining ports were removed and the pneumoperitoneum was relieved. The skin incisions were injected with half percent Marcaine with epinephrine, and all were closed using 4-0 Monocryl suture. Steri-Strips and dressings were then applied. The patient tolerated the procedure well and was sent to the recovery room in stable condition. At the end of the case all counts were correct. VANESSA GARIBAY MD Apr 25, 2020 09:29
[2020-04-25] MEDS ORDERED: oxyCODONE/APAP 5/325 1 TAB TABLET PO PRN ×2 (09:30→09:45)
--- NOTE | 2020-04-25 09:59 | PDOC3 ---
Discharge Summary Visit Information Date of Admission: Apr 23, 2020 Date of Discharge: Apr 25, 2020 Admitting Diagnosis Comment: Calculus cholecystitis s/p Laparoscopic cholecystectomy with intraoperative cholangiogram 04/25, Dr. Espinoza Final Diagnosis Problems Medical Problems: (1) Cholelithiasis Status: Acute (2) Intractable abdominal pain Status: Acute Brief Hospital Course Allergies Allergies Coded Allergies Type Severity Reaction Last Updated Verified No Known Drug Allergies 04/17/20 No Vital Signs Vital Signs Date Time Temp Pulse Resp B/P (MAP) Pulse Ox O2 Delivery O2 Flow Rate FiO2 04/25/20 09:50 97.0 60 16 138/66 98 Room Air 97.0 04/25/20 09:35 10 Brief Hospital Course Ms. Lucio is a 54 old admit for abd pain, gallstone pain, RUQ, q./ eating to OR 04/25, uncomplicated surg, DC home Discharge Information Condition at Discharge: Improved Follow Up: Weeks Disposition/Orders: D/C to Home Scheduled PRN Hydrocodone/Apap 5-325 ([place] 5-325 Tablet) 1 Each Tablet, 1 TAB PO PRN Q6HRS PRN for PAIN, #15 Ref 0 Prescribed by: MIRI MCPHERSON D.O. on 04/17/20 0830 Justicifation of Admission Dx: Justifications for Admission: Justification of Admission Dx: Yes ERMELINDA PANG MD Apr 25, 2020 09:59
[2020-04-25] MEDS ORDERED: PROCHLORPERAZINE 10 MG/2 ML VIAL. ONE (10:03)
--- NOTE | 2020-04-25 15:18 | NUR ---
Discharge Note: PT DISCHARGED HOME WITH SELF CARE. PT LEFT FACILITY VIA PRIVATE VEHICLE WITH FAMILY MEMBER AT 1515. PT STABLE AND ALERT UPON DISCHARGE. PT PIV REMOVED FROM R AC WITHOUT COMPLICATIONS, BANDAGE APPLIED. PT EDUCATED ABOUT DISCHARGE INSTRUCTIONS, DISCHARGE MEDICATIONS, AND FOLLOW-UP CARE. PT EDUCATED ABOUT POST-OP INSTRUCTIONS AND CARE. NO CONCERNS VOICED AT THIS TIME. PT LEFT WITH ALL PERSONAL BELONGINGS. BELKIS PAK Discharge instructions and discharge home medications reviewed with Patient and a copy given. All questions have been answered and understanding verbalized.
--- NOTE | 2020-04-26 16:06 | PATHOLOGY ---
[facility] Accession Number: [id number] . 01 Material submitted: . gallbladder - GALLBLADDER AND CONTENTS . 01 Clinical history: . Cholelithiasis . 02 Diagnosis: Gallbladder, laparoscopic cholecystectomy: - Cholelithiasis. - Chronic cholecystitis. LBQ 04/26/2020 1304 Local . 02 Comment: There is no evidence of malignancy. (JPM/db; 04/26/2020) . 02 Electronically signed: . Juan Garcia MD, Pathologist NPI- [id number] . 01 Gross description: . The specimen is received in formalin, labeled "Cliff Lucio, gallbladder and contents". Received is an intact gallbladder measuring 9.3 x 2.8 x 2.7 cm in greatest dimensions displaying a pink-lucio serosal surface. Opening the specimen reveals a velvety, pink-salinas, bile-stained mucosa with a gallbladder wall thickness of 0.1 cm. Calculi are present displaying a bright yellow and nodular appearance, and no masses or lesions are noted grossly. Clinical Reviewer sections, to include the proximal margin, are submitted in cassette A1. ([facility]; 04/25/2020) QA/QA 04/25/2020 1739 Local . 02 Pathologist provided ICD-10: K80.10 . 02 CPT . 694156 Specimen Comment: A courtesy copy of this report has been sent to [phone] Specimen Comment: [id number], Specimen Comment: Report sent to ,DR WADE / DR RAMOS Performed at: [address], [place], [place] [id number] MD Carlos Vidales MD Phone: [phone] Performed at: 02 [facility] [address] [place] [id number] MD Juan Garcia MD Phone: [phone]
== END 2020-04-25 15:15 | disposition home or self-care (01) | DRG 419 ==
LOC: ER 00:45 → 4 NORTH 05:22
PROVIDERS: ADMIT Family Medicine; ATTEND Family Medicine
PROC: BF121ZZ Fluoroscopy of Gallbladder using Low Osmolar Contrast (ICD-10-PCS; 2020-04-25)
PROC: 0FT44ZZ Resection of Gallbladder, Percutaneous Endoscopic Approach (ICD-10-PCS; principal; 2020-04-25 08:00)
DX: K80.10 Calculus of gallbladder with chronic cholecystitis without obstruction (principal); E66.3 Overweight; K59.09 Other constipation; Z20.828 Contact with and (suspected) exposure to other viral communicable diseases; Z68.29 Body mass index [BMI] 29.0-29.9, adult; Z83.3 Family history of diabetes mellitus; Z90.710 Acquired absence of both cervix and uterus
CPT/HCPCS: 36415; 74177; 74300; 76705; 80053; 83690; 85025; 88304; 96361; 96374; 96375; 99285; A7015; J0330; J0780; J1100; J1170; J1885; J2270; J2405; J2543; J2704; J2710; J3010; J3490; J7030; Q9967; U0003; G0378